=== PATIENT | male | born 1965 | race Caucasian/White ===

== ENCOUNTER → 2023-07-18 13:47 | Outpatient (CLI) | payer OTHER, SELFPAY ==
--- NOTE | ~2023-07-18 | XR_ITS ---
XR ankle RT min 3V DATE: 07/18/2023 14:11 INDICATION: Right ankle sprain TECHNIQUE: 4 views COMPARISON: None FINDINGS: There is an accessory ossicle or ununited fracture along the inferomedial margin of the med ial malleolus, chronic, with smooth margins. No recent fracture or dislocation of the ankle or disruption of the ankle mortise. Mild plantar and moderate posterior calcaneal enthesopathy, without associated erosive change or марина drocalcinosis. IMPRESSION: No recent fracture or dislocation Reviewed, dictated and finalized at location B. [employer]
== END ==
PROVIDERS: PCP Podiatrist Foot & Ankle Surgery; Visit Provider Podiatrist Foot & Ankle Surgery
DX: S93.401A Sprain of unspecified ligament of right ankle, initial encounter (principal); X58.XXXA Exposure to other specified factors, initial encounter
CPT/HCPCS: 73610

== ENCOUNTER 2023-10-02 14:12 | Outpatient (CLI) | payer BC, SELFPAY ==
--- NOTE | ~2023-10-02 | XR_ITS ---
EXAM: XR ankle LT min 3V DATE: 10/02/2023 14:43 HISTORY: Soft tissue disorder, unspecified . COMPARISON: None available. FINDINGS: Normal mineralization. Old medial malleolus avulsion fracture fragment. No acute fracture or dislocation. No lytic or blastic lesion. Achilles, plantar, and medial malleolus enthesopathy. Mod erate tibiotalar osteophytosis. Ankle joint effusion. No erosion or periosteal change. Soft tissues w ithin normal limits. IMPRESSION: No acute osseous finding in the left ankle. 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 Reviewed, dictated and finalized at location K. IMPRESSION: No acute osseous finding in the left ankle. Tibiotalar osteoarthrit is with moderate ankle joint effusion.
== END 2023-10-02 14:13 ==
LOC: MICIMG 14:15
PROVIDERS: PCP Podiatrist Foot & Ankle Surgery; Visit Provider Podiatrist Foot & Ankle Surgery
DX: M79.9 Soft tissue disorder, unspecified (principal); M19.072 Primary osteoarthritis, left ankle and foot
CPT/HCPCS: 73610

== ENCOUNTER 2024-01-29 14:14 | Outpatient (CLI) | payer BC, SELFPAY ==
--- NOTE | ~2024-01-29 | XR_ITS ---
XR knee LT 3V Ordering provider: Leon Hays ([place]), History: . Localized swelling, mass and lump, left lower limb . Comparison: None. FINDINGS: BONES: No acute fracture or dislocation. JOINT SPACES: Normal. SOFT TISSUES: Normal. IMPRESSION: No acute osseous abnormality left knee. Reviewed, dictated and finalized at location A.
== END 2024-01-29 14:15 ==
PROVIDERS: PCP Internal Medicine; Visit Provider Internal Medicine
DX: R22.42 Localized swelling, mass and lump, left lower limb (principal)
CPT/HCPCS: 73562

== ENCOUNTER 2024-10-20 14:51 | Outpatient (CLI) | payer BC, SELFPAY ==
--- NOTE | ~2024-10-20 | XR_ITS ---
HISTORY: Pain toe right COMPARISON: None TECHNIQUE: 3 views of the right foot were performed FINDINGS: No acute fracture or dislocation is appreciated. No significant degenerative disease is noted. The base of the fifth metatarsal is intact. No calcaneal spur is noted. No significant soft tissue swelling is present. Ossification of the insertion of the Achilles tendon is noted. IMPRESSION: Degenerative disease, without acute or subacute fracture. Reviewed, dictated and finalized at location A.
== END 2024-10-20 14:52 | disposition home or self-care (01) ==
LOC: MICIMG 14:53
PROVIDERS: PCP Podiatrist Foot & Ankle Surgery; Visit Provider Podiatrist Foot & Ankle Surgery
DX: M79.674 Pain in right toe(s) (principal); M19.071 Primary osteoarthritis, right ankle and foot
CPT/HCPCS: 73630

== ENCOUNTER 2025-02-23 01:53 | Day surgery (SDC) | payer BC, SELFPAY ==
[2025-02-10 09:11] VITALS: BMI 29.9
--- NOTE | 2025-02-23 09:35 | WPDANESEPPF ---
Anes - Initial Pre Proc Eval Procedure: Operation Date: 02/23/25 11:00 Proposed Procedures p Screening Colonoscopy - Reji Robertson MD Date/Time: 02/23/25 09:35 Surgeon: Reji Robertson MD Pre Op Diagnosis: Screening Patient Data Age: 59 Gender: M Height: 1.83 m Weight: 100 kg Allergies Allergy/AdvReac Type Severity Reaction Status Date / Time No Known Allergies Allergy Verified 02/23/25 09:37 Home Medications ?Medication ?Instructions ?Recorded ?Confirmed ?Type amlodipine 2.5 mg tablet 2.5 mg PO DAILY 02/11/25 02/11/25 History metoprolol succinate 25 mg 25 mg PO HS 02/11/25 02/11/25 History tablet,extended release 24 hr rosuvastatin 20 mg tablet 20 mg PO DAILY 02/11/25 02/11/25 History triamterene 37.5 1 cap PO DAILY 02/11/25 02/11/25 History mg-hydrochlorothiazide 25 mg capsule Patient hx anesthesia problems: none Family hx anesthesia problems: none Results Review: All pre-operative results and documents have been reviewed as part of the pre-operative evaluation. [facility] Past Medical History Medical History (Updated 02/22/25 @ 11:07 by Gian Quiroz DO) Hypertension Hyperlipidemia Social History Social History Smoking status: Never smoker Alcohol intake: current Drinks per week: 2 Living arrangements: with family Spiritual care concerns: No Anes - Eval Final PreProcedure Day of Procedure 02/23/25 09:35 Patient weight: overweight Heart: regular rate and rhythm Lungs: clear to auscultation Airway: Mallampati scale class II Neurological: alert and oriented Last oral intake: >/= 8 hours ASA classification: II Emergent: no Anesthetic plan: proceed Anesthesia type and monitoring: general GIVS and standard monitoring Results Review: All pre-operative results and documents have been reviewed as part of the pre-operative evaluation. Informed Consent: The patient's anesthetic plan and its attendant risks and benefits were discussed with the patient/family/POA. Questions were solicited and answers provided to the satisfaction of the patient/family/POA.
[2025-02-23] MEDS: LACTATED RINGERS 1,000 ML 150 ML IV CONT (09:43)
[2025-02-23 09:44] VITALS: BP 155/90; PULSE 78; RESP 16; TEMP 36.2; O2SAT 97; BMI 30.2
--- NOTE | 2025-02-23 09:53 | PM.IMHP ---
H&P: HPI History of Present Illness Date/Time: 02/23/25 09:53 Chief Complaint: Screening colonoscopy Narrative: This is the patient's first colonoscopy. There are no GI symptoms and there is no family history of colorectal cancer. Review of Systems Review of Systems: All systems reviewed & are unremarkable except as noted in HPI and below [facility] Past Medical History Medical History (Updated 02/23/25 @ 09:53 by Reji Robertson MD) Hypertension Hyperlipidemia Social History Social History Smoking status: Never smoker Alcohol intake: current Drinks per week: 2 Living arrangements: with family Spiritual care concerns: No Meds Home Medications and Allergies Home Medications ?Medication ?Instructions ?Recorded ?Confirmed ?Type amlodipine 2.5 mg tablet 2.5 mg PO DAILY 02/11/25 02/23/25 History metoprolol succinate 25 mg 25 mg PO HS 02/11/25 02/23/25 History tablet,extended release 24 hr rosuvastatin 20 mg tablet 20 mg PO DAILY 02/11/25 02/23/25 History triamterene 37.5 1 cap PO DAILY 02/11/25 02/23/25 History mg-hydrochlorothiazide 25 mg capsule Allergies Allergy/AdvReac Type Severity Reaction Status Date / Time No Known Allergies Allergy Verified 02/23/25 09:37 Vital Signs Vital Signs - 24 hr 02/23/25 09:44 Temperature 97.2 F L Pulse Rate 78 Respiratory Rate 16 Blood Pressure 155/90 H Pulse Oximetry 97 Oxygen Delivery Room Air Exam Const: General: cooperative and healthy appearing Resp: Effort & Inspection: normal respiratory effort and able to speak in complete sentences Auscultation: clear to auscultation bilaterally Cardio: Rate: regular rate Rhythm: regular rhythm GI: Inspection: normal to inspection GI Palp: No No hepatosplenomegaly present Auscultation: normal bowel sounds Rectal Exam: deferred Skin: General skin exam: normal color Psych: Appearance: grossly normal Mental Status: mental status grossly normal Assessment and Plan Assessment and plan (1) Encounter for screening colonoscopy: Code(s): Z12.11 - Encounter for screening for malignant neoplasm of colon Status: Acute Assessment and Plan: The patient is deemed a good candidate for the procedure. Consent signed. Will proceed.
[2025-02-23 10:14] VITALS: BP 124/83; PULSE 65; RESP 19; O2SAT 97
--- NOTE | 2025-02-23 10:14 | S_PTH ---
PATIENT: David Haddad Jr. LOC: [facility] #:[id number] AGE/SX: 59/M ROOM: RE02/23/[address]: Reji Robertson MD : 1965 BED: DIS: 02/23/2025 SPEC #: [id number] RECD: 02/23/25 11:37 STATUS: JAIDEN REQ #: [id number] SHERYL: 02/23/25 10:[address]: Reji Robertson DEPT: [facility] Surgical RECD BY: Latonia Martínez ENTERED: 02/23/25 11:37 SP TYPE: Surgical OTHR DR: Leon Hays ([place])MD Tissues: A - Colon Polypectomy B - Rectal Polyp Procedures: Hematoxylin and Eosin Stain Gross and Microscopic Level 4
[2025-02-23 10:24] VITALS: BP 133/82; PULSE 65; RESP 18; O2SAT 98
[2025-02-23 10:34] VITALS: BP 154/93; PULSE 67; RESP 19; O2SAT 95
== END 2025-02-23 10:40 | disposition home or self-care (01) ==
PROVIDERS: PCP Internal Medicine; Referring Provider Internal Medicine; Visit Provider Internal Medicine Gastroenterology
PROC: 0DJD8ZZ Inspection of Lower Intestinal Tract, Via Natural or Artificial Opening Endoscopic (ICD-10-PCS; CPT 45378; principal; 2025-02-23 11:00)
DX: Z12.11 Encounter for screening for malignant neoplasm of colon (principal); D12.3 Benign neoplasm of transverse colon; D12.8 Benign neoplasm of rectum
CPT/HCPCS: 45385; 88305; J2704; J7120